=== PATIENT | female | born 1960 | race Caucasian/White ===

== ENCOUNTER 2017-01-14 11:39 | Inpatient (IN) | payer OTHER ==
--- NOTE | 2017-01-14 13:39 | ER Document Report ---
ED Extremity Problem, Lower - General Chief Complaint: Ankle Injury Stated Complaint: FALL/RIGHT ANKLE INJURY Time Seen by Provider: 01/14/17 13:15 Mode of Arrival: Ambulatory Information source: Patient Notes: 56-year-old female presents to ED for complaint in her left ankle. She states she fell off the last step of the porch last night around 730. She states her daughter is a LEAD BASED PAINT TECHNICIAN who came and wrapped her leg and gave her crutches elevated and iced it. She states the pain is just gotten worse. She states when she lay still and does not try to put any weight on her pain is a 1 but when she tries to walk on it or move it it is a 4 or 5. Pain scale is a 1-5 TRAVEL OUTSIDE OF THE [place] IN LAST 30 DAYS: No - HPI Patient complains to provider of: Injury, Pain, Swelling Location: Ankle, Foot Occurred: Yesterday Where: Home, Indoors Onset/Duration: Sudden, Waxing and waning Quality of pain: Throbbing Pain Level: 1 - One Sunday and still 5 1 movement or walking Context: Fell Recent injury: Yes Associated symptoms: Painful ambulation Exacerbated by: Hanging down, Movement, Walking Relieved by: Nothing - Related Data Allergies/Adverse Reactions: No Known Allergies Allergy (Verified 01/14/17 11:40) Home Medications: Current Home Medications Ergocalciferol (Vitamin D2) [Vitamin D2] 1 cap PO SA@0800 01/14/17 [History] Olmesartan/Hydrochlorothiazide [Olmesartan-Hctz 40-25 mg Tab] 1 tab PO DAILY 11/21 [History] Rosuvastatin Calcium [Crestor 10 mg Tablet] 10 mg PO DAILY 01/14/17 [History] Past Medical History - General Information source: Patient - Social History Smoking Status: Current Every Day Smoker Cigarette use (# per day): Yes - Pack per day Chew tobacco use (# tins/day): No Smoking Education Provided: Yes - less than 1 min Frequency of alcohol use: None Drug Abuse: None Occupation: dispatcher Lives with: Family Family History: Arthritis, CAD, Hyperlipidemia, Hypertension. denies: COPD, CVA , DM, Malignancy, Thyroid Disfunction Patient has suicidal ideation: No Patient has homicidal ideation: No - Past Medical History Cardiac Medical History: Reports: Hx Hypercholesterolemia, Hx Hypertension Pulmonary Medical History: Reports: Hx Pneumonia EENT Medical History: Reports: None Neurological Medical History: Reports: None Endocrine Medical History: Reports: None Renal/ Medical History: Reports: None Malignancy Medical History: Reports: None GI Medical History: Reports: None Musculoskeltal Medical History: Reports None Skin Medical History: Reports None Psychiatric Medical History: Reports: None Traumatic Medical History: Reports: None Infectious Medical History: Reports: None Past Surgical History: Reports: Hx Cholecystectomy - Immunizations Immunizations up to date: Yes Hx Diphtheria, Pertussis, Tetanus Vaccination: Yes Review of Systems - Review of Systems Constitutional: No symptoms reported EENT: No symptoms reported Cardiovascular: No symptoms reported Respiratory: No symptoms reported Gastrointestinal: No symptoms reported Genitourinary: No symptoms reported Female Genitourinary: No symptoms reported Musculoskeletal: Ankle swelling Skin: Change in color Hematologic/Lymphatic: No symptoms reported Neurological/Psychological: No symptoms reported -: Yes All other systems reviewed and negative Physical Exam - Vital signs Vitals: Temp Pulse Resp BP Pulse Ox 99.4 F 99 18 149/82 H 96 01/14/17 11:45 01/14/17 11:45 01/14/17 11:45 01/14/17 11:45 01/14/17 11:45 Interpretation: Normal - General General appearance: Appears well, Alert - HEENT Head: Normocephalic, Atraumatic Eyes: Normal Pupils: PERRL - Respiratory Respiratory status: No respiratory distress Chest status: Nontender Breath sounds: Normal Chest palpation: Normal - Cardiovascular Rhythm: Regular Heart sounds: Normal auscultation Murmur: No - Abdominal Inspection: Normal Distension: No distension Bowel sounds: Normal Tenderness: Nontender Organomegaly: No organomegaly - Back Back: Normal, Nontender - Extremities General upper extremity: Normal inspection, Nontender, Normal color, Normal ROM , Normal temperature General lower extremity: Normal temperature. No: Yury's sign Ankle: Tender, Ecchymosis, Edema, Instability, Limited ROM, Unable to bear weight. No: Abrasion, Deformity, Laceration Foot: Tender, Ecchymosis, Edema, Metatarsal compress. pain, No evidence of FB, Unable to bear weight. No: Abrasion, Deformity, Instability, Nail injury, Navicular tenderness, Puncture wound, Tender 5th metatarsal - Neurological Neuro grossly intact: Yes Cognition: Normal Orientation: AAOx4 [place] Coma Scale Eye Opening: Spontaneous W[place] Coma Scale Verbal: Oriented Wally Coma Scale Motor: Obeys Commands Wally Coma Scale Total: 15 Speech: Normal Motor strength normal: LUE, RUE, LLE, RLE Sensory: Normal - Psychological Associated symptoms: Normal affect, Normal mood - Skin Skin Temperature: Warm Skin Moisture: Dry Skin Color: Normal Course - Re-evaluation Re-evalutation: 01/14/17 16:21 The left leg ankle and foot were accidentally ordered but the furniture repair technician actually x-rayed the right leg and ankle and foot. The trimalleolar fracture is on the right ankle not the left. Radiology has been called and notified that this is the right ankle. Dr. Westfall has been called and patient is admitted for a trimalleolar fracture of the right ankle. - Vital Signs Vital signs: Temp Pulse Resp BP Pulse Ox 98.2 F 86 16 146/99 H 94 01/14/17 19:01 01/14/17 19:01 01/14/17 19:01 01/14/17 19:01 01/14/17 19:01 - Diagnostic Test Radiology reviewed: Image reviewed, Reports reviewed - Consults malcolm Time consulted: 14:45 Reason for consultation: 01/14/17 15:07 Trimalleolar fracture with a shifted talus right side Consulted provider: will see as inpatient Discharge - Discharge Clinical Impression: Trimalleolar fracture of ankle, closed Qualifiers: Encounter type: initial encounter Laterality: right Qualified Code(s): S82.851A - Displaced trimalleolar fracture of right lower leg, initial encounter for closed fracture Disposition: ADMITTED INPATIENT Admitting Provider: malcolm Unit Admitted: Surgical Floor
--- NOTE | 2017-01-14 14:18 | RADIOLOGY REPORT (SQ) ---
EXAM DESCRIPTION: FOOT LEFT COMPLETE COMPLETED DATE/TIME: 01/14/2017 2:11 pm REASON FOR STUDY: pain and injury COMPARISON: None. NUMBER OF VIEWS: Three views. TECHNIQUE: AP, lateral and oblique radiographic images acquired of the left foot. LIMITATIONS: None. FINDINGS: MINERALIZATION: Osteopenia. BONES: No acute fracture or dislocation. No worrisome bone lesions. JOINTS: No effusions. SOFT TISSUES: No soft tissue swelling. No foreign body. OTHER: No other significant finding. IMPRESSION: No acute finding in the foot. TECHNICAL DOCUMENTATION: JOB ID: [id number] [employer]- All Rights Reserved
--- NOTE | 2017-01-14 14:23 | RADIOLOGY REPORT (SQ) ---
EXAM DESCRIPTION: ANKLE LEFT COMPLETE COMPLETED DATE/TIME: 01/14/2017 2:11 pm REASON FOR STUDY: pain and injury COMPARISON: None. NUMBER OF VIEWS: Three views. TECHNIQUE: AP, lateral, and oblique radiographic images acquired of the left ankle. LIMITATIONS: None. FINDINGS: MINERALIZATION: Osteopenia. BONES: Spiral fracture of the distal fibula. Disruption of the mortise with lateral shift of the larry us. Small medial malleolar avulsion. Posterior malleolar fracture better seen on tib fib imaging. JOINTS: No effusions. SOFT TISSUES: No soft tissue swelling. No foreign body. OTHER: No other significant finding. IMPRESSION: Tri malleolar fracture of the ankle with disruption of the mortise and lateral shift larry us. TECHNICAL DOCUMENTATION: JOB ID: [id number] [employer]- All Rights Reserved
--- NOTE | 2017-01-14 14:24 | RADIOLOGY REPORT (SQ) ---
EXAM DESCRIPTION: TIBIA FIBULA LEFT COMPLETED DATE/TIME: 01/14/2017 2:11 pm REASON FOR STUDY: pain and injury COMPARISON: None. NUMBER OF VIEWS: Two views. TECHNIQUE: Two radiographic images acquired of the left tibia and fibula to include the knee and ank le in at least one projection. LIMITATIONS: None. FINDINGS: MINERALIZATION: Normal. BONES: Tri malleolar ankle fracture. Disrupted mortise. SOFT TISSUES: No obvious swelling or foreign body. OTHER: No other significant finding. IMPRESSION: Tri malleolar fracture of the ankle. Disrupted mortise. TECHNICAL DOCUMENTATION: JOB ID: [id number] [employer]- All Rights Reserved
[2017-01-14] MEDS ORDERED: HYDROCODONE/ACETAMINOPHEN 5-325 MG TABLET PO PRN (18:05)
[2017-01-14] MEDS ORDERED: RINGERS SOLUTION,LACTATED 1,000 ML IV PRN (18:05)
[2017-01-15] MEDS: RINGERS SOLUTION,LACTATED 1,000 ML IV PRN ×3 (01:20→17:52)
--- NOTE | 2017-01-15 06:39 | PDOC H&P ---
History of Present Illness Admission Date/PCP: 01/14/17 14:59 MORELIA CLEVELAND NP History of Present Illness: BRISEYDA MATTHEWS is a 56 year old female who presented to the emergency department status post fall down flight of stairs. After her fall she noted that with weightbearing and ambulation her ankle "did not feel right". Upon presentation to the emergency department she was diagnosed with a trimalleolar fracture of the right ankle. She was then admitted to the hospital and taken up to the second floor with an ultimate plan of surgical repair of the trimalleolar fracture of the right ankle. Past Medical History Cardiac Medical History: Reports: Hyperlipidema, Hypertension Pulmonary Medical History: Reports: Pneumonia EENT Medical History: Reports: None Neurological Medical History: Reports: None Endocrine Medical History: Reports: None Renal/ Medical History: Reports: None Malignancy Medical History: Reports: None GI Medical History: Reports: None Musculoskeltal Medical History: Reports: None Skin Medical History: Reports: None Psychiatric Medical History: Reports: None Traumatic Medical History: Reports: None Infectious Medical History: Reports: None Past Surgical History Past Surgical History: Reports: Cholecystectomy Social History Lives with: Family Smoking Status: Current Every Day Smoker Cigarettes Packs Per Day: 20 Number of Years Smokin Frequency of Alcohol Use: None Hx Recreational Drug Use: No Drugs: None Hx Prescription Drug Abuse: No - Advance Directive Resuscitation Status: Full Code Family History Family History: Arthritis, CAD, Hyperlipidemia, Hypertension. denies: COPD, CVA , DM, Malignancy, Thyroid Disfunction Parental Family History Reviewed: Yes Children Family History Reviewed: Yes Sibling(s) Family History Reviewed.: Yes Medication/Allergy Home Medications: Ergocalciferol (Vitamin D2) [Vitamin D2] 1 cap PO SA@0800 01/14/17 Olmesartan/Hydrochlorothiazide [Olmesartan-Hctz 40-25 mg Tab] 1 tab PO DAILY 11/21 Rosuvastatin Calcium [Crestor 10 mg Tablet] 10 mg PO DAILY 01/14/17 Allergies/Adverse Reactions: No Known Allergies Allergy (Verified 01/14/17 11:40) Review of Systems Constitutional: ABSENT: chills, fever(s), headache(s), weight gain, weight loss Eyes: ABSENT: visual disturbances Cardiovascular: ABSENT: chest pain, dyspnea on exertion, edema, orthropnea, palpitations Respiratory: ABSENT: cough, hemoptysis Gastrointestinal: ABSENT: abdominal pain, constipation, diarrhea, hematemesis, hematochezia, nausea, vomiting Musculoskeletal: PRESENT: joint swelling Neurological: ABSENT: abnormal gait, abnormal speech, confusion, dizziness, focal weakness, syncope Psychiatric: ABSENT: anxiety, depression, homidical ideation, suicidal ideation Physical Exam Vital Signs: Temp Pulse Resp BP Pulse Ox 36.8 C 80 20 122/71 96 01/15/17 02:08 01/15/17 02:08 01/15/17 02:08 01/15/17 02:08 01/15/17 02:08 General appearance: PRESENT: no acute distress, well-developed, well-nourished Head exam: PRESENT: atraumatic, normocephalic Respiratory exam: PRESENT: unlabored Pulses: PRESENT: normal dorsalis pedis pul, +2 pedal pulses bilateral Vascular exam: PRESENT: normal capillary refill Extremities exam: PRESENT: joint swelling, pedal edema Additional comments: Patient is lying recumbent in hospital bed with right lower extremity in full extension with right ankle elevated on 2 pillows. The right ankle and foot are apparently swollen however patient is nontender to palpation. There is also evidence of ecchymosis and erythema about the lateral aspect of the right ankle. She has brisk capillary refill to toes on bilateral feet. She exhibits surprising strength and range of motion of the right ankle based on her diagnosis of a trimalleolar fracture. She exhibits medial and lateral rotation and dorsal and plantar flexion. She has remained nonweightbearing for the past 12 hours and this will continue. Her sensory motor functions are intact and her distal neurovascular exam is intact. Additional comments: Patient remains nonambulatory as she notes pain with weightbearing and ambulation. X-ray imaging reveals that she has sustained a trimalleolar fracture of the right ankle. We will plan for open reduction internal fixation today. Neurological exam: PRESENT: alert, awake, oriented to person, oriented to place , oriented to time, oriented to situation, CN II-XII grossly intact. ABSENT: motor sensory deficit Psychiatric exam: PRESENT: appropriate affect, normal mood. ABSENT: homicidal ideation, suicidal ideation Skin exam: PRESENT: erythema Additional comments: As noted above there is erythema and ecchymosis noted on the lateral aspect of the right ankle. Otherwise skin is warm to palpation and she has brisk capillary refill. Results Impressions: Ankle X-Ray 01/14/17 13:15 IMPRESSION: Tri malleolar fracture of the ankle with disruption of the mortise and lateral shift talus. Foot X-Ray 01/14/17 13:15 IMPRESSION: No acute finding in the foot. Tibia/Fibula X-Ray 01/14/17 13:26 IMPRESSION: Tri malleolar fracture of the ankle. Disrupted mortise. Assessment & Plan - Diagnosis (1) Trimalleolar fracture of ankle, closed Qualifiers: Encounter type: initial encounter Laterality: right Qualified Code(s): S82.851A - Displaced trimalleolar fracture of right lower leg, initial encounter for closed fracture Is this a current diagnosis for this admission?: Yes - Plan Summary Plan Summary: 56-year-old white female who has sustained a trimalleolar fracture of the right ankle after falling down a flight of stairs. Patient has been admitted to the hospital and is currently comfortable on the second floor. She is not currently in pain and exhibits surprising strength range of motion of the right ankle based on her diagnoses. Patient will remain n.p.o. and nonweightbearing this morning. We will plan for open reduction internal fixation of the right ankle later today. This was discussed with the patient and she voiced understanding and is in agreement with the plan.
[2017-01-15] MEDS ORDERED: DEXTROSE 50%-WATER 25 GM/50 ML DISP.SYRIN IV PRN ×2 (07:34)
[2017-01-15] MEDS ORDERED: GLUCAGON,HUMAN RECOMB 1 MG INJ SUBCUT PRN (07:34)
[2017-01-15] MEDS ORDERED: DEXTROSE 40% GEL 15 GM TUBE PO PRN ×2 (07:34)
--- NOTE | 2017-01-15 08:43 | EKG REPORT ---
SEVERITY:- ABNORMAL ECG - SINUS RHYTHM LOW VOLTAGE THROUGHOUT NONSPECIFIC T ABNORMALITIES, LATERAL LEADS : Confirmed by: Katelyn David 15-Jan-2017 08:42:01
[2017-01-15 08:55] LABS: ABSOLUTE EOSINOPHILS # (AUTO) 0.1 10^3/uL (0.0-0.6); ABSOLUTE MONOCYTES (AUTO) 0.5 10^3/uL (0.1-1.4); ABSOLUTE NEUT (AUTO) 4.7 10^3/uL (1.7-8.2); BASOPHILS % (AUTO) 0.5 % (0-2); EOSINOPHILS % (AUTO) 0.7 % (0-6); HEMOGLOBIN 12.1 g/dL (12.0-15.5); HGB HCT DIFFERENCE 1.3; LYMPHOCYTES % (AUTO) 27.6 % (13-45); MEAN CORPUSCULAR HEMOGLOBIN 31.7 pg (27.0-33.4); MEAN CORPUSCULAR HGB CONC 34.5 g/dL (32.0-36.0); MEAN CORPUSCULAR VOLUME 92 fl (80-97); RED BLOOD COUNT 3.81 10^6/uL (3.72-5.28); RED CELL DISTRIBUTION WIDTH 14.1 % (11.5-14.0); SEGMENTED NEUTROPHILS % (AUTO) 64.2 % (42-78); WHITE BLOOD COUNT 7.3 10^3/uL (4.0-10.5)
[2017-01-15 09:06] LABS: POTASSIUM 3.7 mmol/L (3.6-5.0); SODIUM 143.3 mmol/L (137-145)
[2017-01-15] MEDS ORDERED: ACETAMINOPHEN 100 ML IV ONE (11:25)
[2017-01-15] MEDS ORDERED: MIDAZOLAM 2 MG/2 ML INJ ONE (11:25)
[2017-01-15] MEDS ORDERED: MORPHINE SULFATE 10 MG/ML INJ ONE (11:25)
[2017-01-15] MEDS ORDERED: ONDANSETRON HCL INJ/PF 4 MG/2 ML SDV ONE (11:25)
[2017-01-15] MEDS ORDERED: FENTANYL CITRATE INJ/PF 100 MCG/2 ML AMPUL ONE (11:25)
[2017-01-15] MEDS ORDERED: PROPOFOL INJ 200 MG/20 ML VIAL IV ONE (11:26)
[2017-01-15] MEDS ORDERED: DEXAMETHASONE SOD PHOSPHATE INJ 4 MG/1 ML VIAL ONE (11:26)
[2017-01-15] MEDS ORDERED: CEFAZOLIN INJ 1 GM VIAL ONE (11:49)
[2017-01-15] MEDS ORDERED: BUPIVACAINE HCL 0.25% /EPINEPHRINE INJ/PF 30 ML SDV ONE (12:14)
[2017-01-15] MEDS ORDERED: MEPERIDINE HCL/PF INJ 25 MG/1 ML DISP.SYRIN IV PRN (12:22)
[2017-01-15] MEDS ORDERED: PROMETHAZINE HCL INJ 25 MG/1 ML VIAL IV PRN ×2 (12:22)
[2017-01-15] MEDS ORDERED: MORPHINE SULFATE 10 MG/ML INJ IV PRN ×2 (12:22→13:30)
[2017-01-15] MEDS ORDERED: FENTANYL CITRATE INJ/PF 100 MCG/2 ML AMPUL IV PRN (12:22)
--- NOTE | 2017-01-15 12:43 | Operative Report ---
Operative Report DATE OF SURGERY: 01/15/17 PREOPERATIVE DIAGNOSIS: Right ankle fracture OPERATION: Open reduction internal fixation right lateral malleolus fracture SURGEON: JANIE BROOKS ANESTHESIA: Spinal ESTIMATED BLOOD LOSS: 50 PROCEDURE: With the patient supine on the operating table the right lower extremities prepped and draped in sterile fashion. The limb was elevated for exsanguination tourniquet inflated 280 torr. Longitudinal incision was made over the distal fibula. Sharp dissection was carried incision through the periosteum. The periosteum was elevated. Under direct visualization the fracture is reduced and held in place with lobster claw clamp. Subsequently a [place] 7 hole titanium distal fibula plate is applied to the lateral surface and 3 screws were placed distally and 3 screws were placed proximally. The hardware placement as well as the fracture reduction are checked fluoroscopically and felt to be adequate. The tourniquet was deflated. Hemostasis obtained with electrocautery. The wound was irrigated. Is closed in layers and Vicryl followed by lupe. A sterile compressive dressing and posterior plaster splint were applied and patient was returned to PACU in satisfactory condition.
[2017-01-15] MEDS ORDERED: OXYCODONE HCL IR 5 MG TABLET PO PRN (13:10)
[2017-01-15] MEDS: FENTANYL CITRATE INJ/PF 100 MCG/2 ML AMPUL IV PRN ×4 (15:04→15:06)
[2017-01-15] MEDS: DIPHENHYDRAMINE HCL 50 MG/ML VIAL IV PRN ×2 (15:04→15:06)
--- NOTE | 2017-01-15 16:04 | RADIOLOGY REPORT (SQ) ---
EXAM DESCRIPTION: ANKLE RIGHT AP/LATERAL; NO CHG FLUORO COMPLETED DATE/TIME: 01/15/2017 3:11 pm REASON FOR STUDY: ORIF RT ANKLE ASSISTED WITH FLUORO IN OR COMPARISON: Left ankle films 01/14/2017 FLUOROSCOPY TIME: 0.1 minutes 2 digital C-arm images saved to PACS. TECHNIQUE: Intra-operative images acquired during surgical procedure to evaluate progress. NUMBER OF IMAGES: 2 digital C-arm images saved to pac's LIMITATIONS: None. FINDINGS: Fixation plate with multiple screws along the distal fibula. Very mild persistent widenin g of the medial ankle mortise. Please see the operative report for further details IMPRESSION: Intra procedural imaging and fluoro COMMENT: Quality ID [id number]: Final reports for procedures using fluoroscopy that document radiation exp osure indices, or exposure time and number of fluorographic images (if radiation exposure indices are not available) Please consult full operative report of the attending physician for description of the procedure. TECHNICAL DOCUMENTATION: JOB ID: [id number] [employer]- All Rights Reserved
[2017-01-15] MEDS: CEFAZOLIN 2 GM/D5W RTU 2 GM/50 ML RTUPB IV SCH (17:43)
[2017-01-16] MEDS: CEFAZOLIN 2 GM/D5W RTU 2 GM/50 ML RTUPB IV SCH (01:50)
--- NOTE | 2017-01-16 06:43 | PDOC DISCHARGE SUMMARY ---
General - Admit/Disc Date/PCP Admission Date/Primary Care Provider: 01/14/17 14:59 MORELIA CLEVELAND NP Discharge Date: 01/16/17 - Discharge Diagnosis (1) Trimalleolar fracture of ankle, closed Is this a current diagnosis for this admission?: Yes - Additional Information Resuscitation Status: Full Code Discharge Diet: As Tolerated, Regular Discharge Activity: Balance Activity w/Rest, No tub bath, Other - Touchdown weightbearing restriction right lower extremity Home Medications: Ergocalciferol (Vitamin D2) [Vitamin D2] 1 cap PO SA@0800 01/14/17 Olmesartan/Hydrochlorothiazide [Olmesartan-Hctz 40-25 mg Tab] 1 tab PO DAILY 11/21 Rosuvastatin Calcium [Crestor 10 mg Tablet] 10 mg PO DAILY 01/14/17 History of Present Illness History of Present Illness: BRISEYDA MATTHEWS is a 56 year old female who tripped, fell, and sustained a right ankle injury. She was evaluated in emergency room where a displaced trimalleolar fracture was identified. Patient is admitted to the orthopedic service for fracture management. Hospital Course Hospital Course: The patient is taken to the operating room in good undergoes uncomplicated open reduction internal fixation of the distal fibula fracture. She is returned to floor in satisfactory condition. She has minimal pain. She is ablating with a walker. Physical Exam Vital Signs: Temp Pulse Resp BP Pulse Ox 37.1 C 77 16 107/63 94 01/16/17 03:15 01/16/17 03:15 01/16/17 03:15 01/16/17 03:15 01/16/17 03:15 Intake & Output 01/14/17 01/15/17 01/16/17 06:59 06:59 06:59 Intake Total 2215 Output Total 950 Balance 1265 General appearance: PRESENT: no acute distress Head exam: PRESENT: normocephalic Respiratory exam: PRESENT: unlabored Cardiovascular exam: PRESENT: RRR Pulses: PRESENT: +1 pedal pulses bilateral Vascular exam: PRESENT: normal capillary refill GI/Abdominal exam: PRESENT: soft Rectal exam: PRESENT: deferred Extremities exam: PRESENT: other - Right lower extremity immobilized in a posterior short leg splint. Brisk capillary refill to the digits. Sensory examination is intact. Motor function to the great toes intact. Neurological exam: PRESENT: alert, awake, oriented to person, oriented to place , oriented to time, oriented to situation. ABSENT: motor sensory deficit Psychiatric exam: PRESENT: appropriate affect, normal mood. ABSENT: homicidal ideation, suicidal ideation Skin exam: PRESENT: dry, intact, warm. ABSENT: cyanosis, rash Results Laboratory Results: 01/15/17 08:24 01/15/17 08:24 01/15/17 01/15/17 08:24 08:24 WBC 7.3 RBC 3.81 Hgb 12.1 Hct 35.0 L MCV 92 MCH 31.7 MCHC 34.5 RDW 14.1 H Plt Count 114 L Seg Neutrophils % 64.2 Lymphocytes % 27.6 Monocytes % 7.0 Eosinophils % 0.7 Basophils % 0.5 Absolute Neutrophils 4.7 Absolute Lymphocytes 2.0 Absolute Monocytes 0.5 Absolute Eosinophils 0.1 Absolute Basophils 0.0 Sodium 143.3 Potassium 3.7 Chloride 106 Carbon Dioxide 25 Anion Gap 12 Impressions: Foot X-Ray 01/14/17 13:15 IMPRESSION: No acute finding in the foot. Tibia/Fibula X-Ray 01/14/17 13:26 IMPRESSION: Tri malleolar fracture of the ankle. Disrupted mortise. Ankle X-Ray 01/15/17 00:00 IMPRESSION: Intra procedural imaging and fluoro Fluoroscopy 01/15/17 00:00 IMPRESSION: Intra procedural imaging and fluoro Status: Imported from PACS Plan Discharge Plan: Patient to be discharged home on a touchdown weightbearing restriction on the right lower extremity. Social work is consulted for home health nursing, home health physical therapy, wheeled walker, bedside commode. Follow-up with Dr. Westfall and [facility] for surgery in 2 weeks for staple removal.
[2017-01-16 08:53] VITALS: BP 111/69
== END 2017-01-16 11:34 | disposition home or self-care (01) | DRG 494 ==
LOC: ER 11:39 → EH 14:59 → 2N 20:07
PROVIDERS: ADMIT Orthopaedic Surgery; ATTEND Orthopaedic Surgery
PROC: 0QSJ04Z Reposition Right Fibula with Internal Fixation Device, Open Approach (ICD-10-PCS; principal; 2017-01-15 11:15)
DX: S82.851A Displaced trimalleolar fracture of right lower leg, initial encounter for closed fracture (principal); W10.8XXA Fall (on) (from) other stairs and steps, initial encounter; Y92.008 Other place in unspecified non-institutional (private) residence as the place of occurrence of the external cause; I10 Essential (primary) hypertension; E78.5 Hyperlipidemia, unspecified; F17.210 Nicotine dependence, cigarettes, uncomplicated; Z90.49 Acquired absence of other specified parts of digestive tract; Z82.61 Family history of arthritis; Z82.3 Family history of stroke; Z83.3 Family history of diabetes mellitus; Z80.9 Family history of malignant neoplasm, unspecified
CPT/HCPCS: 01480; 36415; 80051; 85025; 93005; 93010; 99285; C1713; J0131; J0690; J1100; J2250; J2270; J2405; J2704; J3010; J3490; J7120